=== PATIENT | female | born 1980 | race African-American/Black ===

== ENCOUNTER 2022-04-29 06:50 | Outpatient (RCR) | payer OTHER, SELFPAY | END 2022-07-13 09:57 | disposition home or self-care (01) | LOC: ANHPT 06:50 | PROVIDERS: PCP Physician Assistant; Visit Provider Physician Assistant | DX: M25.512 Pain in left shoulder (principal) | CPT/HCPCS: 99199 ==

== ENCOUNTER 2023-03-23 19:39 | Emergency (ER) | payer OTHER, SELFPAY ==
--- NOTE | ~2023-03-23 | XR_ITS ---
Portable chest x-ray Comparison: None Clinical History: Pain Findings: Lungs are clear, without focal consolidation or pleural effusion. There is elevation of th e right hemidiaphragm. Cardiomediastinal silhouette is unremarkable. Bones and soft tissues are unre markable. Impression: Clear lungs. Elevation of right hemidiaphragm. Reviewed, dictated and finalized at location . Impression: Clear lungs. Elevation of right hemidiaphragm.
--- NOTE | ~2023-03-23 | CT_ITS ---
Clinical Indication: Chest pain CT Scan of the Chest with Contrast: Technique: Contiguous sections were acquired throughout the chest after intravenous administration of 100 cc of Omnipaque 350. Dose reduction technique was used on this scan by utilizing automated expos ure control and iterative reconstruction technique. The dose-length product (DLP) was 583.23 mGy-cm. Findings: There is no evidence of any significant mediastinal, hilar or axillary lymphadenopathy. There is no f illing defect in the pulmonary arterial tree to suggest pulmonary embolus. There is no evidence of ao rtic dissection or aneurysm. There is no evidence of pleural or pericardial effusion. The lungs are clear. No pulmonary nodules or infiltrates are noted. Images through the upper abdomen reveal no abnormalities. Possible small sebaceous cyst noted in the upper back in the midline. Impression: No evidence of pulmonary embolus, aortic dissection, or aortic aneurysm. Clear lungs. Possible small sebaceous cyst in the upper back in the midline. Reviewed, dictated and finalized at [facility]. Impression: No evidence of pulmonary embolus, aortic dissection, or aortic aneurysm. Clear lungs. Possible small sebaceous cyst in the upper back in the midline.
[2023-03-23 20:04] VITALS: BP 105/81; PULSE 107; RESP 18; TEMP 37.3; O2SAT 100
[2023-03-23 21:44] VITALS: BP 102/60; PULSE 83; RESP 16; TEMP 36.8; O2SAT 100
[2023-03-23 21:54] VITALS: BP 129/84; PULSE 82; RESP 12; RESP 18; O2SAT 100; O2SAT 98
[2023-03-23 22:01] VITALS: BP 120/72; RESP 15; O2SAT 100
[2023-03-23] MEDS: KETOROLAC 30 MG/ML VIAL (*BKC) IV PUSH (23:18)
[2023-03-23 23:22] LABS: Basophils Percent Auto 0.2 % (0.2-1.2); Eosinophils Absolute Auto 0.4 K/mm3 (0-0.3); Hematocrit 24.2 % (37.0-47.0); Hemoglobin 7.6 g/dL (12.0-15.0); Immature Granulocyte Absolute 0.05 K/mm3 (0.00-0.031); Immature Granulocyte Percent A 0.6 % (0-0.5); Lymphocytes Absolute Auto 2.64 K/mm3 (0.9-3.2); Lymphocytes Percent Auto 30.2 % (18.3-44.2); Mean Corpuscular HGB Conc 31.4 g/dl (32-36); Mean Corpuscular Hemoglobin 22.1 pg (26-34); Mean Corpuscular Volume 70.3 fl (80-100); Mean Platelet Volume 8.3 fl (7.4-10.4); Monocytes Absolute Auto 0.7 K/mm3 (0.1-0.6); Monocytes Percent Auto 7.7 % (2.6-8.5); Neutrophils Percent Auto 57.3 % (45.5-73.1); Platelet Count Result 537 k/mm3 (150-375); Red Blood Count 3.44 M/mm3 (4.2-5.4); Red Cell Distribution Width 18.1 % (11.5-14.5); White Blood Count 8.8 K/mm3 (4.5-10.0)
[2023-03-23 23:32] LABS: Alanine Aminotransferase 17 U/L (6-35); Albumin Level 3.6 g/dL (3.5-5.1); Alkaline Phosphatase 80 U/L (38-126); Anion Gap 7 mmol/L (8-16); Aspartate Amino Transferase 30 U/L (14-36); Bilirubin,Total 0.2 mg/dL (0.2-1.3); Blood Urea Nitrogen 12 mg/dL (7-17); Calcium 8.6 mg/dL (8.4-10.2); Carbon Dioxide 25 mmol/L (22-30); Chloride 105 mmol/L (98-107); Estimated CRCL calculation 106 ml/min; Estimated Glomerular Filt Rate > 60; Glucose 106 mg/dL (65-110); Lipase 203 U/L (23-300); Potassium 3.7 mmol/L (3.4-5.0); Sodium 137 mmol/L (137-145)
[2023-03-23 23:36] LABS: D Dimer 1.05 ug/mL (<0.48)
[2023-03-23 23:42] LABS: Anisocytosis 1+ (NORMAL); Microcytosis 1+ (NORMAL); Platelet Estimate Increased (Adequate); Polychromasia 1+ (NORMAL); Schistocytes None Seen (NORMAL); Target Cells 1+ (NORMAL)
[2023-03-23 23:44] LABS: Troponin I < 0.012 ng/mL (0.000-0.034)
--- NOTE | 2023-03-24 02:04 | ED.GENADULT ---
HPI - General Adult General Chief complaint: Unspecified <Trudi Abrams PA-C - Last Filed: 03/24/23 02:24> Stated complaint: missed infusion, upper body pain <Trudi Abrams PA-C - Last Filed: 03/24/23 02:24> Time Seen by Provider: 03/23/23 22:13 <Trudi Abrams PA-C - Last Filed: 03/24/23 02:24> History of Present Illness HPI narrative: 42-year-old female reports for evaluation for generalized pain x 3 months. Patient states she has a history of hidradenitis and gets Remicade infusions, her last infusion was 3 months ago. States at this time she was told to follow-up with her railroad car truck builder because she needed to obtain a TB shot before she could get another Remicade infusion which she did not do because she states she did not want to take infusions anymore. However, since then she has been having worsening pain all over . Reports pain from her neck down to her toes and fingertips. She is also reporting chest pain for the past month and a half that is worse with movement and intermittent, states it is present at baseline but significantly worsens when she moves her upper extremity. She denies pleuritic pain, cough or congestion, fever, focal numbness or weakness, vision changes, headache. She has an appointment with her railroad car truck builder within the next month but states she could not wait to see her railroad car truck builder given the pain. Reports she has received steroids in the past with improvement in pain. <Trudi Abrams PA-C - Last Filed: 03/24/23 02:24> Related Data Allergies/adverse reactions: Allergies Allergy/AdvReac Type Severity Reaction Status Date / Time shellfish derived Allergy Swelling Verified 03/23/23 20:07 of Lip/Tongue/Throat <Trudi Abrams PA-C - Last Filed: 03/24/23 02:24> Review of Systems Review of Systems: CONSTITUTIONAL: Denies fever, chills EYES: Denies visual changes, redness, or discharge. ENT: Denies rhinorrhea, congestion, sore throat, or otalgia. CARDIOVASCULAR: See HPI RESPIRATORY: Denies cough or dyspnea. GASTROINTESTINAL: Denies abdominal pain, nausea, vomiting, or diarrhea. GENITOURINARY: Denies dysuria or hematuria. SKIN: Denies rash or itching. MUSCULOSKELETAL: See HPI NEUROLOGIC: Denies headache, numbness, dizziness, or weakness. PSYCHIATRIC: Denies anxiety or depression. <Trudi Abrams PA-C - Last Filed: 03/24/23 02:24> Exam Narrative: GENERAL: Well-appearing, in no acute distress. Patient resting comfortably in exam bed. She is pleasant and conversational. HEAD: Normocephalic EYES: PERRLA, EOMI ENT: Nares clear. Mucous membranes moist. Oropharynx without tonsillar hypertrophy exudate or other lesions. NECK: Supple. CHEST: No respiratory distress. Clear to auscultation, no adventitious breath sounds. No tenderness to chest wall. HEART: Regular rate and rhythm. No murmur heard. Normal peripheral pulses. ABDOMEN: Soft, nontender, normal active bowel sounds. EXTREMITIES: Normal range of motion. No edema. SKIN: Warm, dry, no rash. NEURO: No focal deficits. Alert and oriented x3. Cranial nerves II through XII intact. Strength 5 out of 5 in bilateral upper and lower extremities. Sensation intact throughout. PSYCH: Normal mood and affect. <Trudi Abrams PA-C - Last Filed: 03/24/23 02:24> Course STILL WORKER HELPER/PA Physician Supervision I agree with midlevel documentation; I performed the medical decision making component of this evaluation. <Estee Masterson MD - Last Filed: 03/24/23 19:51> Vital Signs Vital signs: Vital Signs Temperature 99.1 F 03/23/23 20:04 Pulse Rate 107 H 03/23/23 20:04 Respiratory Rate 18 03/23/23 20:04 Blood Pressure 105/81 03/23/23 20:04 Pulse Oximetry 100 03/23/23 20:04 Oxygen Delivery Room Air 03/23/23 20:04 Temperature 98.2 F 03/23/23 21:44 Pulse Rate 87 03/24/23 02:56 Respiratory Rate 20 03/24/23 02:56 Blood Pressure 124/84 03/24/23 02:56 Pulse Oxime
--- NOTE | 2023-03-24 02:11 | ECG_ITS ---
Measurements Intervals [place] Rate: 79 P: 43 [place]: 173 QRS: 22 QRSD: 101 T: 51 QT: 362 QTc: 416 Interpretive Statements SINUS RHYTHM NORMAL ECG NO PREVIOUS ECG AVAILABLE FOR COMPARISON Electronically Signed On 03-24-2023 9:26:10 CDT by Claudy Xiong M.D.
[2023-03-24 02:56] VITALS: BP 124/84; PULSE 87; RESP 20; O2SAT 99
== END 2023-03-24 02:45 | disposition home or self-care (01) ==
PROVIDERS: Emergency Provider Physician Assistant
DX: R07.89 Other chest pain (principal); R52 Pain, unspecified; L73.2 Hidradenitis suppurativa
CPT/HCPCS: 36415; 71045; 71275; 80053; 83690; 84484; 85025; 85380; 93005; 96374; 96375; 99284; J1100; J1885; Q9967